=== PATIENT | female | born 1965 | race Caucasian/White ===

== ENCOUNTER 2022-11-21 13:34 | Outpatient (CLI) | payer OTHER ==
[2022-11-21 14:59] LABS: Hemoglobin 11.8 g/dL (12.0-15.5); Mean Corpuscular HGB CONC 32.2 g/dL (32.0-36.0); Mean Corpuscular Hemoglobin 28.6 pg (27.0-33.0); Mean Corpuscular Volume 88.9 fl (81.6-98.3); Mean Platelet Volume 10.6 fl (7.4-10.4); Platelet Count 261 10x3/uL (150-450); RBC Distribution Width 13.5 % (11.5-14.5); Red Blood Cell (RBC) Count 4.13 10x6/uL (3.90-5.03); White Blood Cell (WBC) Count 6.7 10x3/uL (3.5-10.5)
[2022-11-21 15:14] LABS: Anion Gap 13 mmol/L (10-20); BUN (Urea Nitrogen) 19 mg/dL (9.8-20.1); Calc. Creatinine Clearance 0 mL/min (70-130); Carbon Dioxide 28 mmol/L (22-29); Chloride 105 mmol/L (98-107); Estimated GFR 83; Glucose 125 mg/dL (70-105); Potassium 4.1 mmol/L (3.5-5.1); Sodium 142 mmol/L (136-145)
== END 2022-11-21 13:35 | disposition home or self-care (01) ==
LOC: CSHLAB 13:34
PROVIDERS: ATTEND Orthopaedic Surgery
DX: Z01.818 Encounter for other preprocedural examination (principal); S83.242A Other tear of medial meniscus, current injury, left knee, initial encounter
CPT/HCPCS: 80048; 85027; 93005; 93010

== ENCOUNTER 2022-11-24 10:00 | Day surgery (SDC) | payer OTHER ==
[2022-11-23 10:33] VITALS: BMI 43.5
[2022-11-24] MEDS ORDERED: Ropivacaine 0.5% HCl/PF (150 MG/30 ML VIAL) ONE (11:32)
[2022-11-24] MEDS ORDERED: Acetaminophen 500 MG TAB ONE (11:36)
[2022-11-24] MEDS ORDERED: Lidocaine 1% MPF 2 ML VIAL ONE (11:59)
[2022-11-24] MEDS ORDERED: EPINEPHrine 1 MG/ML AMP ONE (12:11)
[2022-11-24] MEDS ORDERED: Dexamethasone 4 mg/ml Vial ONE ×2 (12:11→12:32)
[2022-11-24] MEDS ORDERED: Bupivacaine PF 0.5% 30 ML VIAL ONE (12:11)
[2022-11-24] MEDS ORDERED: HYDROmorphone 0.5 MG/0.5 ML SYRINGE ONE (12:30)
[2022-11-24] MEDS ORDERED: PROPOFOL 40 ML ONE (12:32)
[2022-11-24] MEDS ORDERED: Ondansetron PF 4 MG/2 ML Vial ONE (12:32)
[2022-11-24] MEDS ORDERED: Fentanyl 100 MCG/2 ML VIAL ONE ×2 (12:32→13:56)
[2022-11-24] MEDS ORDERED: Lidocaine 2% PF 5 ML VIAL ONE (12:32)
[2022-11-24] MEDS ORDERED: CEFAZOLIN 2 GM VIAL ONE (12:35)
[2022-11-24] MEDS ORDERED: Ketorolac Tromethamine 30 MG/ML VIAL ONE (13:13)
[2022-11-24] MEDS ORDERED: ePHEDrine Sulfate 50 MG/10 ML VIAL ONE (13:27)
== END 2022-11-24 14:55 | disposition home or self-care (01) ==
LOC: CSHSDC 10:00
PROVIDERS: ATTEND Orthopaedic Surgery
PROC: 0SBD4ZZ Excision of Left Knee Joint, Percutaneous Endoscopic Approach (ICD-10-PCS; principal; 2022-11-24)
DX: S83.242A Other tear of medial meniscus, current injury, left knee, initial encounter (principal); M22.42 Chondromalacia patellae, left knee; M17.12 Unilateral primary osteoarthritis, left knee; Z79.899 Other long term (current) drug therapy; X58.XXXA Exposure to other specified factors, initial encounter
CPT/HCPCS: J0171; J1100; J1170; J1885; J2001; J2405; J2704; J2795; J3010; S0020